=== PATIENT | female | born 1940 | race Caucasian/White ===

== ENCOUNTER 2023-03-27 01:16 | Inpatient (IN) | payer MEDICARE ==
[2023-03-27 01:52] LABS: VBG PH 7.21 (7.31-7.41)
[2023-03-27 02:05] LABS: Albumin 3.9 g/dL (3.5-5.0); Basophils % (A) 0 %; Calcium 8.7 mg/dL (8.4-10.2); Eosinophils # (A) 0.3 k/uL (0-0.7); Eosinophils % (A) 3 %; HCT 31.8 % (34.0-46.0); HGB 9.6 gm/dL (11.4-16.0); Hypochromasia Marked; Lymphocytes # (A) 3.2 k/uL (1.0-4.8); Lymphocytes % (A) 31 %; MCH 26.9 pg (25.0-35.0); MCHC 30.2 g/dL (31.0-37.0); Magnesium 2.2 mg/dL (1.6-2.3); Mean Platelet Volume 10.8; Monocytes # (A) 0.4 k/uL (0-1.0); Monocytes % (A) 4 %; Neutrophils # (A) 6.1 k/uL (1.3-7.7); Neutrophils % (A) 59 %; Platelet Count 235 k/uL (150-450); Potassium 4.8 mmol/L (3.5-5.1); RBC 3.57 m/uL (3.80-5.40); RDW 14.5 % (11.5-15.5); Total Bilirubin 0.6 mg/dL (0.2-1.3); Total Protein 7.1 g/dL (6.3-8.2); WBC 10.3 k/uL (3.8-10.6)
[2023-03-27 02:18] LABS: Partial Thromboplastin Time 20.2 sec (22.0-30.0); Prothrombin Time 10.4 sec (9.0-12.0)
[2023-03-27] MEDS ORDERED: MORPHINE SULFATE 4 MG/ML SYRINGE IV STA (02:18)
[2023-03-27] MEDS ORDERED: FUROSEMIDE 10 MG/ML 4 ML VIAL IV STA (02:18)
--- NOTE | 2023-03-27 03:33 | XR ---
EXAM: XR Chest, 1 View CLINICAL HISTORY: ITS.REASON XR Reason: dyspnea TECHNIQUE: Frontal view of the chest. COMPARISON: No previous studies. FINDINGS: Lungs: Diffuse patchy airspace disease is noted bilaterally most suggestive of atypical pneumonia. Pleural space: Blunting of the left CP angle aspect the base of small left pleural effusion appeared. No pneumothorax. Heart: Cardiomegaly. Mediastinum: Unremarkable. Bones/joints: Osteopenia. Tubes, lines and devices: Pacemaker overlies the left upper chest. IMPRESSION: 1. Findings suggestive of possible atypical pneumonia. 2. Small left pleural effusion appeared 3. Scarring at the left lung base. 4. Osteopenia.
[2023-03-27] MEDS ORDERED: AZITHROMYCIN 500 MG in SODIUM CHLORIDE 0.9% 250 ML IVPB STA (04:07)
[2023-03-27] MEDS ORDERED: PNEUMONIA PROTOCOL UTILIZED 1 EACH MISC PO PRN ×2 (04:18→09:05)
[2023-03-27] MEDS: SODIUM CHLORIDE 0.9% 1,000 ML IV SCH ×3 (06:00→22:57)
--- NOTE | 2023-03-27 06:31 | ED ---
SOB HPI - General Chief Complaint: Shortness of Breath Stated Complaint: Shortness of breath Time Seen by Provider: 03/27/23 01:29 Source: patient Mode of arrival: ambulatory Limitations: no limitations - History of Present Illness Initial Comments: 's patient is an 83-year-old woman brought to have evaluation for shortness of breath. The patient's daughter gives most of the history as the patient does have significant dementia and also has significant dyspnea. The symptoms came on over the past couple of hours. The patient does tend to get episodes like this, and the patient's daughter states that she will use oxygen, give benzodiazepine, and attempt to talk the patient through the episode. Today's episode seemed much more severe and the patient was very diaphoretic, anxious and therefore they bring her here for evaluation. MD Complaint: shortness of breath -: hour(s) Severity scale (1-10): 0 Consistency: constant Improves With: oxygen, upright position Worsens With: nothing Associated Symptoms: denies other symptoms - Related Data Home Medications Medication Instructions Recorded Confirmed ALPRAZolam [Xanax] 0.25 mg PO DAILY PRN 03/27/23 03/27/23 Albuterol Nebulized [Ventolin 2.5 mg INHALATION RT-Q2H PRN 03/27/23 03/27/23 Nebulized] Aspirin EC [Ecotrin Low Dose] 81 mg PO DAILY 03/27/23 03/27/23 Donepezil [Aricept] 10 mg PO HS 03/27/23 03/27/23 Escitalopram [Lexapro] 10 mg PO DAILY 03/27/23 03/27/23 Fluticasone Propion/Salmeterol 1 puff INHALATION RT-BID 03/27/23 03/27/23 [Wixela 250-50 Inhub] Furosemide [Lasix] 20 mg PO DAILY 03/27/23 03/27/23 Levothyroxine Sodium [Synthroid] 125 mcg PO MOTUWETHFRSA 03/27/23 03/27/23 Lovastatin [Mevacor] 40 mg PO HS 03/27/23 03/27/23 Memantine [Namenda] 10 mg PO BID 03/27/23 03/27/23 Mirtazapine [Remeron] 7.5 mg PO HS 03/27/23 03/27/23 Montelukast [Singulair] 10 mg PO HS 03/27/23 03/27/23 Potassium Chloride ER [K-Dur 10] 10 meq PO DAILY 03/27/23 03/27/23 amLODIPine [Norvasc] 10 mg PO DAILY 03/27/23 03/27/23 lisinopriL [Zestril] 5 mg PO DAILY 03/27/23 03/27/23 metFORMIN HCL ER [Glucophage XR] 500 mg PO W/BRKFST 03/27/23 03/27/23 Allergies Allergy/AdvReac Type Severity Reaction Status Date / Time Penicillins Allergy Unknown Verified 03/27/23 12:10 Review of Systems ROS Statement: Those systems with pertinent positive or pertinent negative responses have been documented in the HPI. ROS Other: All systems not noted in ROS Statement are negative. Constitutional: Denies: fever, weakness Respiratory: Reports: dyspnea. Denies: wheezes Cardiovascular: Reports: orthopnea. Denies: chest pain, edema, syncope Gastrointestinal: Denies: abdominal pain, vomiting, diarrhea Genitourinary: Denies: dysuria, hematuria Musculoskeletal: Denies: back pain Skin: Denies: rash Neurological: Denies: headache, weakness Past Medical History Past Medical History: Asthma, Coronary Artery Disease (CAD), Cancer, Chest Pain / Angina, Heart Failure, COPD, Dementia, Diabetes Mellitus, Hypertension, Renal Disease, Thyroid Disorder Additional Past Medical History / Comment(s): lung and breast cancer, BBB, History of Any Multi-Drug Resistant Organisms: None Reported Past Surgical History: Hysterectomy, Pacemaker Additional Past Surgical History / Comment(s): lumpectomy , Past Psychological History: No Psychological Hx Reported Smoking Status: Former smoker Past Alcohol Use History: None Reported Past Drug Use History: None Reported - Past Family History Father Family Medical History: Myocardial Infarction (HI) Mother Family Medical History: Myocardial Infarction (HI) General Exam Limitations: no limitations General appearance: alert, in distress Head exam: Present: atraumatic, normocephalic Eye exam: Present: normal appearance. Absent: scleral icterus, conjunctival injection Neck exam: Present: normal inspection Respiratory exam: Present: respiratory distress (Mild tachypnea), rales (Bilateral bases), rhonchi, accessory muscle use. Absent: decreased breath sounds, prolonged expiratory Cardiovascular Exam: Present: regular rate, tachycardia, systolic murmur. Absent: diastolic murmur, rubs, gallop GI/Abdominal exam: Present: soft. Absent: distended, tenderness, guarding, rebound, rigid, mass Extremities exam: Present: normal inspection, normal capillary refill. Absent: pedal edema, calf tenderness Back exam: Present: normal inspection. Absent: CVA tenderness (R), CVA tenderness (L) Neurological exam: Present: alert Skin exam: Present: warm, dry, intact, normal color. Absent: rash Course Vital Signs 03/27/23 03/27/23 03/27/23 01:26 01:30 01:36 Temperature 96.8 F L Pulse Rate 114 H 98 Respiratory 22 26 H Rate Blood Pressure 103/62 127/58 O2 Sat by Pulse 62 L 100 Oximetry Fraction of 80 Inspired Oxygen (FIO2) 03/27/23 03/27/23 03/27/23 01:43 01:46 02:47 Temperature Pulse Rate 62 Respiratory 30 H 26 H Rate Blood Pressure 124/55 O2 Sat by Pulse 100 Oximetry Fraction of 60 Inspired Oxygen (FIO2) 03/27/23 03/27/23 03/27/23 04:00 05:39 05:49 Temperature Pulse Rate 80 Respiratory 24 Rate Blood Pressure 99/48 O2 Sat by Pulse 100 100 Oximetry Fraction of 80 Inspired Oxygen (FIO2) 03/27/23 03/27/23 05:53 05:58 Temperature Pulse Rate 60 Respiratory 22 Rate Blood Pressure 93/45 O2 Sat by Pulse 98 97 Oximetry Fraction of Inspired Oxygen (FIO2) Medical Decision Making - Medical Decision Making Patient is an 83-year-old woman brought to have evaluation of acute onset of dyspnea. Given the patient's daughters description of things it sounds like there is probably underlying congestive heart failure. The patient had been placed on BiPAP, and it sounds like there was already moderate amount of improvement by the time I had been in to see the patient. She was no longer diaphoretic. The patient had chest x-ray which I interpreted as showing cardiomegaly with some vascular congestion. Radiology interprets patchy infiltrate suggestive of atypical pneumonia. On given their interpretation I did order a dose of antibiotics though I still wean more towards acute congestive heart failure. Patient will have echocardiogram. Admitted for further evaluation and treatment. Was pt. sent in by a medical professional or institution (, PA, FOLDER TAPER OPERATOR, urgent care, hospital, or [facility]...) When possible be specific @ -[No] Did you speak to anyone other than the patient for history (EMS, parent, family, police, friend...)? What history was obtained from this source @ -[Patient's daughter gave significant portion of history as patient with dementia Did you review nursing and triage notes (agree or disagree)? Why? @ -[I reviewed and agree with nursing and triage notes] Were old charts reviewed (outside hosp., previous admission, EMS record, old EKG, old radiological studies, urgent care reports/EKG's, [facility] records)? Report findings @ -[No old charts were reviewed] Differential Diagnosis (chest pain, altered mental status, abdominal pain women, abdominal pain men, vaginal bleeding, weakness, fever, dyspnea, syncope, headache, dizziness, GI bleed, back pain, seizure, CVA, palpatations, mental health, musculoskeletal)? @ -[Differential Dyspnea: Coronary syndrome, arrhythmia, tamponade, asthma, COPD, pulmonary embolism, pneumonia, pneumothorax, pulmonary effusion, anaphylaxis, diabetic ketoacidosis, flailed chest, pulmonary contusion, diaphragmatic rupture, anemia, neuromuscular, this is not meant to be an all-inclusive list. EKG interpreted by me (3pts min.). @ -[As above] X-rays interpreted by me (1pt min.). @ -[As above CT interpreted by me (1pt min.). @ -[None done] U/S interpreted by me (1pt. min.). @ -[None done] What testing was considered but not performed or refused? (CT, X-rays, U/S, labs)? Why? @ -[None] What meds were considered but not given or refused? Why? @ -[None] Did you discuss the management of the patient with other professionals (professionals i.e. , PA, FOLDER TAPER OPERATOR, lab, RT, psych nurse, nursing home social worker, regeneration operator, teacher, sheriff's officer, test case developer)? Give summary @ -[Case discussed with admitting physician Was smoking cessation discussed for >3mins.? @ -[No] Was critical care preformed (if so, how long)? @ -[No] Were there social determinants of health that impacted care today? How? (Homelessness, low income, unemployed, alcoholism, drug addiction, transportation, low edu. Level, literacy, decrease access to med. care, assisted, rehab)? @ -[No] Was there de-escalation of care discussed even if they declined (Discuss DNR or withdrawal of care, Hospice)? DNR status @ -[Did discuss CODE STATUS and patient is considering options What co-morbidities impacted this encounter? (DM, HTN, Smoking, COPD, CAD, Cancer, CVA, ARF, Chemo, Hep., AIDS, mental health diagnosis, sleep apnea, morbid obesity)? @ -[Underlying congestive heart failure Was patient admitted / discharged? Hospital course, mention meds given and route, prescriptions, significant lab abnormalities, going to OR and other pertinent info. @ -[Patient is admitted for further care Undiagnosed new problem with uncertain prognosis? @ -[No] Drug Therapy requiring intensive monitoring for toxicity (Heparin, Nitro, Insulin, Cardizem)? @ -[No] Were any procedures done? @ -[No] Diagnosis/symptom? @ -[Acute dyspnea Exacerbation of congestive heart failure Possible pneumonia Acute, or Chronic, or Acute on Chronic? @ -[Acute Uncomplicated (without systemic symptoms) or Complicated (systemic symptoms)? @ -[, Getting Side effects of treatment? @ -[No] Exacerbation, Progression, or Severe Exacerbation? @ -[No] Poses a threat to life or bodily function? How? (Chest pain, [place], HI, pneumonia, PE, COPD, DKA, ARF, appy, cholecystitis, CVA, Diverticulitis, Homicidal, Suicidal, threat to staff... and all critical care pts) @ -[yes, untreated congestive heart failure and/or pneumonia may worsen to respiratory failure and - Lab Data Result diagrams: 03/27/23 01:35 03/27/23 01:35 Lab Results 03/27/23 03/27/23 03/27/23 Range/Units 01:35 01:35 01:35 WBC 10.3 (3.8-10.6) k/uL RBC 3.57 L (3.80-5.40) m/uL Hgb 9.6 L (11.4-16.0) gm/dL Hct 31.8 L (34.0-46.0) % MCV 89.0 (80.0-100.0) fL MCH 26.9 (25.0-35.0) pg MCHC 30.2 L (31.0-37.0) g/dL RDW 14.5 (11.5-15.5) % Plt Count 235 (150-450) k/uL MPV 10.8 Neutrophils % 59 % Lymphocytes % 31 % Monocytes % 4 % Eosinophils % 3 % Basophils % 0 % Neutrophils # 6.1 (1.3-7.7) k/uL Lymphocytes # 3.2 (1.0-4.8) k/uL Monocytes # 0.4 (0-1.0) k/uL Eosinophils # 0.3 (0-0.7) k/uL Basophils # 0.0 (0-0.2) k/uL Hypochromasia Marked PT 10.4 (9.0-12.0) sec INR 1.0 (<1.2) APTT 20.2 L (22.0-30.0) sec VBG pH (7.31-7.41) VBG pCO2 (37-51) mmHg VBG HCO3 (24-28) mmol/L Sodium 139 (137-145) mmol/L Potassium 4.8 (3.5-5.1) mmol/L Chloride 102 (98-107) mmol/L Carbon Dioxide 23 (22-30) mmol/L Anion Gap 14 mmol/L BUN 35 H (7-17) mg/dL Creatinine 1.39 H (0.52-1.04) mg/dL Est GFR (CKD-EPI)AfAm 41 (>60 ml/min/1.73 sqM) Est GFR (CKD-EPI)NonAf 35 (>60 ml/min/1.73 sqM) Glucose 367 H (74-99) mg/dL Lactic Ac Sepsis Rflx Plasma Lactic Acid Jason (0.7-2.0) mmol/L Calcium 8.7 (8.4-10.2) mg/dL Magnesium 2.2 (1.6-2.3) mg/dL Total Bilirubin 0.6 (0.2-1.3) mg/dL AST 32 (14-36) U/L ALT 21 (4-34) U/L Alkaline Phosphatase 70 (38-126) U/L Troponin I (0.000-0.034) ng/mL Total Protein 7.1 (6.3-8.2) g/dL Albumin 3.9 (3.5-5.0) g/dL 06/04/23 06/04/23 06/04/23 Range/Units 01:35 01:35 01:35 WBC (3.8-10.6) k/uL RBC (3.80-5.40) m/uL Hgb (11.4-16.0) gm/dL Hct (34.0-46.0) % MCV (80.0-100.0) fL MCH (25.0-35.0) pg MCHC (31.0-37.0) g/dL RDW (11.5-15.5) % Plt Count (150-450) k/uL MPV Neutrophils % % Lymphocytes % % Monocytes % % Eosinophils % % Basophils % % Neutrophils # (1.3-7.7) k/uL Lymphocytes # (1.0-4.8) k/uL Monocytes # (0-1.0) k/uL Eosinophils # (0-0.7) k/uL Basophils # (0-0.2) k/uL Hypochromasia PT (9.0-12.0) sec INR (<1.2) APTT (22.0-30.0) sec VBG pH 7.21 L (7.31-7.41) VBG pCO2 57 H (37-51) mmHg VBG HCO3 22 L (24-28) mmol/L Sodium (137-145) mmol/L Potassium (3.5-5.1) mmol/L Chloride (98-107) mmol/L Carbon Dioxide (22-30) mmol/L Anion Gap mmol/L BUN (7-17) mg/dL Creatinine (0.52-1.04) mg/dL Est GFR (CKD-EPI)AfAm (>60 ml/min/1.73 sqM) Est GFR (CKD-EPI)NonAf (>60 ml/min/1.73 sqM) Glucose (74-99) mg/dL Lactic Ac Sepsis Rflx Plasma Lactic Acid Jason 5.6 H* (0.7-2.0) mmol/L Calcium (8.4-10.2) mg/dL Magnesium (1.6-2.3) mg/dL Total Bilirubin (0.2-1.3) mg/dL AST (14-36) U/L ALT (4-34) U/L Alkaline Phosphatase (38-126) U/L Troponin I 0.016 (0.000-0.034) ng/mL Total Protein (6.3-8.2) g/dL Albumin (3.5-5.0) g/dL 03/27/23 Range/Units 02:37 WBC (3.8-10.6) k/uL RBC (3.80-5.40) m/uL Hgb (11.4-16.0) gm/dL Hct (34.0-46.0) % MCV (80.0-100.0) fL MCH (25.0-35.0) pg MCHC (31.0-37.0) g/dL RDW (11.5-15.5) % Plt Count (150-450) k/uL MPV Neutrophils % % Lymphocytes % % Monocytes % % Eosinophils % % Basophils % % Neutrophils # (1.3-7.7) k/uL Lymphocytes # (1.0-4.8) k/uL Monocytes # (0-1.0) k/uL Eosinophils # (0-0.7) k/uL Basophils # (0-0.2) k/uL Hypochromasia PT (9.0-12.0) sec INR (<1.2) APTT (22.0-30.0) sec VBG pH (7.31-7.41) VBG pCO2 (37-51) mmHg VBG HCO3 (24-28) mmol/L Sodium (137-145) mmol/L Potassium (3.5-5.1) mmol/L Chloride (98-107) mmol/L Carbon Dioxide (22-30) mmol/L Anion Gap mmol/L BUN (7-17) mg/dL Creatinine (0.52-1.04) mg/dL Est GFR (CKD-EPI)AfAm (>60 ml/min/1.73 sqM) Est GFR (CKD-EPI)NonAf (>60 ml/min/1.73 sqM) Glucose (74-99) mg/dL Lactic Ac Sepsis Rflx Y Plasma Lactic Acid Jason (0.7-2.0) mmol/L Calcium (8.4-10.2) mg/dL Magnesium (1.6-2.3) mg/dL Total Bilirubin (0.2-1.3) mg/dL AST (14-36) U/L ALT (4-34) U/L Alkaline Phosphatase (38-126) U/L Troponin I (0.000-0.034) ng/mL Total Protein (6.3-8.2) g/dL Albumin (3.5-5.0) g/dL - EKG Data -: EKG Interpreted by Me Interpretation: other (Underlying rhythm appears to be paced rate is 102 BPM) Disposition Clinical Impression: Congestive heart failure, Pneumonia Disposition: ADMITTED IP TO THIS HOSP Condition: Undetermined Is patient prescribed a controlled substance at d/c from ED?: No
[2023-03-27] MEDS ORDERED: DEXTROSE 50% SYRINGE 50 ML IVP PRN ×2 (06:37)
[2023-03-27 08:38] LABS: Glucose,Whole Blood 181 mg/dL (70-110)
[2023-03-27] MEDS ORDERED: ACETAMINOPHEN TAB 325 MG TAB PO PRN (09:05)
[2023-03-27] MEDS ORDERED: ENOXAPARIN 40 MG/0.4 ML SYRINGE SQ SCH (09:15)
[2023-03-27] MEDS: INSULIN ASPART (NovoLOG) 100 UNIT/ML VIAL SQ SCH ×5 (09:27→22:57)
[2023-03-27] MEDS: FUROSEMIDE 40 MG TAB PO SCH ×2 (09:27→20:40)
[2023-03-27] MEDS ORDERED: HEPARIN SODIUM 1,000 UN/ML (10ML VL) IV PRN (11:37)
[2023-03-27] MEDS ORDERED: HEPARIN SODIUM 1,000 UN/ML (10ML VL) IV ONE (11:37)
[2023-03-27 11:38] LABS: Glucose,Whole Blood 163 mg/dL (70-110)
[2023-03-27] MEDS ORDERED: HEPARIN SOD,PORK IN 0.45% NACL 25,000 UNIT in 0.45% NACL 1 250ML.BAG IV SCH (11:45)
[2023-03-27] MEDS ORDERED: ALPRAZolam 0.25 MG TAB PO PRN (14:37)
[2023-03-27] MEDS ORDERED: ALBUTEROL NEBULIZED 2.5 MG/3 ML INHALATION PRN (14:37)
[2023-03-27] MEDS ORDERED: ESCITALOPRAM 10 MG TAB PO SCH (14:45)
[2023-03-27] MEDS ORDERED: ASPIRIN 81 MG PO SCH (14:45)
[2023-03-27 16:15] LABS: Glucose,Whole Blood 98 mg/dL (70-110)
--- NOTE | 2023-03-27 16:23 | P.CRDCN ---
History of Present Illness Consult date: 03/27/23 Requesting physician: Berry Arciniega Reason for Consult (text): CHF new onset Chief complaint: shortness of breath, diaphoresis History of present illness: This is a pleasantly confused 83-year-old female patient who typically follows with Dr. Dominguez. She is a history of CAD with prior stent in 2011, chronic diastolic congestive heart failure, COPD on home oxygen, lung cancer being followed closely by pulmonology with no treatment, aortic stenosis, PPM, HTN, HLD, DM and fairly advanced Alzheimer's dementia. She was camping with her daughter in [place] and woke up in the middle the night with sudden onset of significant shortness of breath and diaphoresis. No chest discomfort. The daughter gave her initially a Xanax without improvement in her symptoms. She was quite weak and had to get help to get her into the car. She brought her to the emergency department and was found to have an oxygen saturation of 62% on 3 L via nasal cannula. Chest x-ray did show possible atypical pneumonia. She admitting diagnosis of CHF exacerbation however NT proBNP is normal for age at 1520. Hemoglobin 9.6, creatinine 1.39 BUN 35. Initial troponin was normal at 0.016 with subsequent troponins of 2.04 and 2.93. 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 She is unsure of the degree of aortic stenosis. She verbalizes that she would like her mother to be a NO CODE. There have been previous conversations with the patient and her family regarding eventual hospice care. Over the last couple of months her appetite has declined and she has not been eating very much. She denies any edema or orthopnea. She's had no palpitations, dizziness or syncope. Past Medical History Past Medical History: Asthma, Coronary Artery Disease (CAD), Cancer, Chest Pain / Angina, Heart Failure, COPD, Dementia, Diabetes Mellitus, Hypertension, Renal Disease, Thyroid Disorder Additional Past Medical History / Comment(s): lung and breast cancer, BBB, History of Any Multi-Drug Resistant Organisms: None Reported Past Surgical History: Hysterectomy, Pacemaker Additional Past Surgical History / Comment(s): lumpectomy right breast, Past Anesthesia/Blood Transfusion Reactions: Previous Problems w/ Anesthesia Additional Past Anesthesia/Blood Transfusion Reaction / Comment(s): confusion with anesethesia, mentally confused afterwards Type of Cardiac Device: Permanent Pacemaker Device Placement Date:: 2019 Past Psychological History: No Psychological Hx Reported, Anxiety, Depression Smoking Status: Former smoker Past Alcohol Use History: None Reported Past Drug Use History: None Reported - Past Family History Father Family Medical History: Myocardial Infarction (MA) Mother Family Medical History: Myocardial Infarction (MA) Medications and Allergies Home Medications Medication Instructions Recorded Confirmed Type ALPRAZolam [Xanax] 0.25 mg PO DAILY PRN 03/27/23 03/27/23 History Albuterol Nebulized [Ventolin 2.5 mg INHALATION RT-Q2H PRN 03/27/23 03/27/23 His tory Nebulized] Aspirin EC [Ecotrin Low Dose] 81 mg PO DAILY 03/27/23 03/27/23 History Donepezil [Aricept] 10 mg PO HS 03/27/23 03/27/23 History Escitalopram [Lexapro] 10 mg PO DAILY 03/27/23 03/27/23 History Fluticasone Propion/Salmeterol 1 puff INHALATION RT-BID 03/27/23 03/27/23 Hist ory [Wixela 250-50 Inhub] Furosemide [Lasix] 20 mg PO DAILY 03/27/23 03/27/23 History Levothyroxine Sodium [Synthroid] 125 mcg PO [id number] 03/27/23 03/27/23 History Lovastatin [Mevacor] 40 mg PO HS 03/27/23 03/27/23 History Memantine [Namenda] 10 mg PO BID 03/27/23 03/27/23 History Mirtazapine [Remeron] 7.5 mg PO HS 03/27/23 03/27/23 History Montelukast [Singulair] 10 mg PO HS 03/27/23 03/27/23 History Potassium Chloride ER [K-Dur 10] 10 meq PO DAILY 03/27/23 03/27/23 History amLODIPine [Norvasc] 10 mg PO DAILY 03/27/23 03/27/23 History lisinopriL [Zestril] 5 mg PO DAILY 03/27/23 03/27/23 History metFORMIN HCL ER [Glucophage XR] 500 mg PO W/BRKFST 03/27/23 03/27/23 History Allergies Allergy/AdvReac Type Severity Reaction Status Date / Time Penicillins Allergy Unknown Verified 03/27/23 12:10 Physical Exam Vitals: Vital Signs Temp Pulse Pulse Resp BP BP Pulse Ox 03/27/23 12:00 98.4 F 60 18 117/61 97 03/27/23 08:02 98.0 F 79 18 129/62 97 03/27/23 08:00 60 18 03/27/23 06:32 98.2 F 61 16 115/56 94 L 03/27/23 05:58 97 03/27/23 05:53 60 22 93/45 98 03/27/23 05:49 03/27/23 05:39 80 24 99/48 100 03/27/23 04:00 100 03/27/23 02:47 62 26 H 124/55 100 03/27/23 01:46 03/27/23 01:43 30 H 03/27/23 01:36 03/27/23 01:30 98 26 H 127/58 100 03/27/23 01:26 96.8 F L 114 H 22 103/62 62 L FiO2 03/27/23 12:00 03/27/23 08:02 03/27/23 08:00 03/27/23 06:32 03/27/23 05:58 03/27/23 05:53 03/27/23 05:49 80 03/27/23 05:39 03/27/23 04:00 03/27/23 02:47 03/27/23 01:46 60 03/27/23 01:43 03/27/23 01:36 80 03/27/23 01:30 03/27/23 01:26 Intake and Output 03/26/23 03/27/23 03/27/23 22:59 06:59 14:59 Intake Total 180 Output Total 550 Balance -370 Intake: Oral 180 Output: Urine 550 Other: Voiding Method Indwelling Catheter Weight 63.503 kg 63.503 kg PHYSICAL EXAMINATION: This is a 83-year-old female in no apparent distress at the time of my examination. HEENT: Head is atraumatic, normocephalic. Pupils are equal, round. Sclerae anicteric. Conjunctivae are clear. Mucous membranes of the mouth are moist. Neck is supple. There is no elevated jugular venous pressure. No carotid bruit is heard. CHEST EXAMINATION: Clear to auscultation bilaterally. No wheezes rales or rhonchi. Respirations even and nonlabored. HEART EXAMINATION: Heart regular, positive S1 and S2. Systolic ejection murmur consistent with history of . ABDOMEN: Soft, nontender. Bowel sounds are heard. No organomegaly noted. EXTREMITIES: 2+ peripheral pulses with no evidence of peripheral edema and no calf tenderness noted. NEUROLOGIC EXAMINATION: Patient is awake, alert and oriented to person. Results 03/27/23 01:35 03/27/23 01:35 Cardiac Enzymes 03/27/23 03/27/23 03/27/23 Range/Units 01:35 01:35 09:10 AST 32 (14-36) U/L Troponin I 0.016 2.040 H* (0.000-0.034) ng/mL 03/27/23 Range/Units 12:06 AST (14-36) U/L Troponin I 2.930 H* (0.000-0.034) ng/mL Coagulation 03/27/23 Range/Units 01:35 PT 10.4 (9.0-12.0) sec APTT 20.2 L (22.0-30.0) sec CBC 03/27/23 Range/Units 01:35 WBC 10.3 (3.8-10.6) k/uL RBC 3.57 L (3.80-5.40) m/uL Hgb 9.6 L (11.4-16.0) gm/dL Hct 31.8 L (34.0-46.0) % Plt Count 235 (150-450) k/uL Comprehensive Metabolic Panel 03/27/23 Range/Units 01:35 Sodium 139 (137-145) mmol/L Potassium 4.8 (3.5-5.1) mmol/L Chloride 102 (98-107) mmol/L Carbon Dioxide 23 (22-30) mmol/L BUN 35 H (7-17) mg/dL Creatinine 1.39 H (0.52-1.04) mg/dL Glucose 367 H (74-99) mg/dL Calcium 8.7 (8.4-10.2) mg/dL AST 32 (14-36) U/L ALT 21 (4-34) U/L Alkaline Phosphatase 70 (38-126) U/L Total Protein 7.1 (6.3-8.2) g/dL Albumin 3.9 (3.5-5.0) g/dL Current Medications Generic Name Dose Route Start Last Admin Trade Name Freq PRN Reason Stop Dose Admin Acetaminophen 650 mg 03/27/23 09:05 Acetaminophen Tab 325 Mg Tab PO Q4HR PRN Fever and/ or Pain Azithromycin 500 mg 03/28/23 09:00 Azithromycin 500 Mg Tab PO 03/29/23 09:01 DAILY GARCIA Protocol Dextrose/Water 25 ml 03/27/23 06:37 Dextrose 50% Syringe 50 Ml IVP PER PROTOCOL PRN Hypoglycemia Protocol Dextrose/Water 50 ml 03/27/23 06:37 Dextrose 50% Syringe 50 Ml IVP PER PROTOCOL PRN Hypoglycemia Protocol Furosemide 40 mg 03/27/23 09:01 03/27/23 09:27 Furosemide 40 Mg Tab PO 40 mg Q12HR GARCIA Administration Heparin Sodium (Porcine) 0 unit 03/27/23 11:37 Heparin Sodium 1,000 Un/Ml (10ml Vl) IV PER PROTOCOL PRN Low PTT Protocol Sodium Chloride 1,000 mls @ 100 mls/hr 03/27/23 04:30 03/27/23 06:00 Saline 0.9% IV 100 mls/hr .Q10H GARCIA Administration Ceftriaxone Sodium 2 gm/ 50 mls @ 100 mls/hr 03/28/23 09:00 Sodium Chloride IVPB 03/31/23 09:29 Q24HR GARCIA Protocol Heparin Sodium/Sodium Chloride 250 mls @ 7.62 mls/hr 03/27/23 11:45 03/27/23 11:55 25,000 unit/ Sodium Chloride IV 12 units/kg/hr .Q24H GARCIA 7.62 mls/hr Administration Protocol 12 UNITS/KG/HR Insulin Aspart 0 unit 03/27/23 07:30 03/27/23 14:31 Insulin Aspart (Novolog) 100 Unit/Ml Vial SQ Not Given ACHS [facility] Protocol Miscellaneous Information 1 each 03/27/23 09:05 Pneumonia Protocol Utilized 1 Each Misc PO ONCE PRN Per Protocol Intake and Output 03/26/23 03/27/23 03/27/23 22:59 06:59 14:59 Intake Total 180 Output Total 550 Balance -370 Intake: Oral 180 Output: Urine 550 Other: Voiding Method Indwelling Catheter Weight 63.503 kg 63.503 kg Patient Weight 03/28/23 06:59 Weight 63.503 kg 03/27/23 01:35 03/27/23 01:35 EKG Interpretations (text) Sinus with ventricular pacing Assessment and Plan Assessment: #1 symptoms of sudden onset shortness of breath and diaphoresis with oxygen saturation of 62% on admission on 3 L via nasal cannula #2 NSTEMI #3 history of CAD with prior stenting in 2011 #4 aortic stenosis #5 chronic diastolic congestive heart failure, appears to be euvolemic, NT proBNP 1520 #6 status post pacemaker implantation #7 hypertension #8 hyperlipidemia #9 diabetes #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 We will obtain 2-D echo with Doppler study to assess cardiac structure and function. At this time due to patient's underlying malignancy, advanced Alzheimer's dementia, and her wishes she is not a candidate for aggressive cardiac workup. If her blood pressure remains stable may consider adding an oral nitrate. We'll continue to follow the patient and provide further recommendations accordingly. DIRECT MARKETING EXECUTIVE note has been reviewed, I agree with a documented findings and plan of care. Patient was seen and examined.
--- NOTE | 2023-03-27 16:32 | HP ---
HISTORY AND PHYSICAL PRESENTING COMPLAINT: Shortness of breath. HISTORY OF PRESENT ILLNESS: This is an 83-year-old lady with past medical history significant for dementia, hypertension, coronary artery disease, congestive heart failure, COPD, diabetes mellitus, thyroid disorder, who presented to the emergency department with complaints of shortness of breath and dyspnea. The patient is a poor historian and the history was obtained from daughter, who mentioned the patient was diaphoretic, anxious, and difficult to breathe at home. Workup initiated in the ER included chest x-ray which did show findings for atypical pneumonia, pleural effusion noted on the left side, scarring noted at the left lung base; EKG was obtained at the time of admission which showed nonspecific ST-segment changes. Blood work obtained at the time of presentation in ER included a CBC which showed WBC of 10.3, hemoglobin 9.6, hematocrit 31, platelet count 235. Serum chemistry is obtained, showed sodium 139, potassium 4.8, chloride 102, BUN 35, creatinine 1.39. Initial troponin obtained at the time of admission was 2.930, N- Terminal ProBNP 1520; the patient had blood glucose ranging between 160 to 367. The patient was accompanied by daughter at bedside, who assisted with history taking. Per daughter, the patient has been getting more short of breath and she does wear 2 L of oxygen at baseline and was noted to be needing more oxygen. The patient will be admitted for further workup and treatment of congestive heart failure, non-ST elevation NM, and community-acquired pneumonia. PAST MEDICAL HISTORY: Coronary artery disease, history of heart failure, COPD, dementia, diabetes, hypertension, thyroid disorder. PAST SURGICAL HISTORY: Hysterectomy, pacemaker in place, history of lumpectomy. SOCIAL HISTORY: Former smoker. Denies alcohol or illicit drug use. FAMILY HISTORY: Not significant. Unable to obtain secondary to dementia. REVIEW OF SYSTEMS: A 12-point review of system was obtained, which was essentially normal. The patient denies fever or weakness. She does complain of dyspnea. She does complain of orthopnea. Denies dysuria, hematuria, back pain, headache, rash, chest pain. PHYSICAL EXAMINATION: VITAL SIGNS: Temperature 98.4, pulse 60, respirations 18, blood pressure 117/61, saturation is 97% on 4 L. GENERAL: The patient is alert, in no apparent distress. Impaired memory. HEENT: Normocephalic and atraumatic. PULMONARY: Mild tachypnea. Decreased breath sounds bilaterally. No use of accessory muscles. No wheezing audible. CARDIOVASCULAR: Regular rate. Systolic murmur. No lower extremity edema. ABDOMEN: Soft. Nontender. Bowel sounds present. NEUROLOGIC: Alert and oriented to person. Appears at baseline. ASSESSMENT: 1. Community-acquired pneumonia. 2. Acute on chronic hypoxic respiratory failure. 3. Fkz-JY-lucekbney myocardial infarction. 4. History of dementia. 5. Diabetes mellitus. 6. Acute exacerbation of congestive heart failure, unknown type. PLAN: 1. Continue the patient on Lasix, receiving 40 mg of Lasix oral b.i.d. 2. Continue Rocephin and azithromycin, follow up on ____CRP _ levels. 3. In regard to dementia, continue with orientation; home regimen including Namenda, Remeron, and Aricept to continue. 4. In regard to non-ST elevation NM, continue the patient on IV heparin. Continue aspirin; Cardiology consulted. Continue telemonitoring, serial troponins ordered. 5. In regard to congestive heart failure, echocardiogram ordered. 6. Follow up on CBC, BMP, and CRP levels. 7. Code status was discussed with the patient and daughter. The patient is DNR. Total time spent on H and P is 35 minutes. MMODL / IJN: [id number] / YOSSI
[2023-03-27 19:37] LABS: Glucose,Whole Blood 138 mg/dL (70-110)
[2023-03-27] MEDS: SYMBICORT 80-4.5 MCG INHALER INHALATION SCH (20:54)
[2023-03-27] MEDS ORDERED: ATORVASTATIN 40 MG TAB PO SCH (21:00)
[2023-03-27] MEDS ORDERED: MONTELUKAST 10 MG TAB PO SCH (21:00)
[2023-03-27] MEDS ORDERED: ATORVASTATIN 10 MG TAB PO SCH (21:00)
[2023-03-27] MEDS ORDERED: MEMANTINE 10 MG TAB PO SCH (21:00)
[2023-03-27] MEDS ORDERED: MIRTAZAPINE 15 MG TAB PO SCH (21:00)
[2023-03-27] MEDS ORDERED: DONEPEZIL 10 MG TAB PO SCH (21:00)
[2023-03-27] MEDS ORDERED: GLYCOPYRROLATE 0.2 MG/ML 2 ML VIAL IVP PRN (22:13)
[2023-03-27] MEDS ORDERED: ONDANSETRON 4 MG/2 ML VIAL IVP PRN (22:13)
[2023-03-27] MEDS ORDERED: ATROPINE OPHTH SOLN 1% 5ML BTL SUBLINGUAL PRN (22:13)
[2023-03-27] MEDS: MORPHINE SULFATE 4 MG/ML SYRINGE IV PRN (22:26)
--- NOTE | 2023-03-28 00:10 | XR ---
EXAM: XR Chest, 1 View CLINICAL HISTORY: ITS.REASON XR Reason: Resp distress TECHNIQUE: Frontal view of the chest. COMPARISON: 03/27/2023 FINDINGS: Lungs: Redemonstrated interstitial and airspace opacities representing edema or infection. Scarring at the left lung base. Pleural space: Small left pleural effusion. Heart: Unremarkable. No cardiomegaly. Tubes, lines and devices: Pacemaker leads in the right atrium and right ventricle. IMPRESSION: 1. Redemonstrated interstitial and airspace opacities representing edema or infection. Slight worsening aeration at the left base. 2. Small left pleural effusion.
[2023-03-28] MEDS: MORPHINE SULFATE 4 MG/ML SYRINGE IV PRN ×3 (01:46→08:20)
[2023-03-28] MEDS: SYMBICORT 80-4.5 MCG INHALER INHALATION SCH (08:19)
[2023-03-28] MEDS ORDERED: LORazepam 2 MG/ML INJ IV PRN (08:27)
[2023-03-28] MEDS ORDERED: AZITHROMYCIN 500 MG TAB PO SCH (09:00)
[2023-03-28] MEDS ORDERED: amLODIPine 10 MG TAB PO SCH (09:00)
[2023-03-28] MEDS ORDERED: POTASSIUM CHLORIDE ER 10 MEQ TAB.ER.PRT PO SCH (09:00)
[2023-03-28] MEDS ORDERED: MORPHINE SULFATE 2 MG/ML SYRINGE IV PRN (09:10)
[2023-03-28] MEDS: MORPHINE SULFATE (100 MG/2 ML) 100 MG in SODIUM CHLORIDE 0.9% 100 ML IV SCH (09:49)
[2023-03-28 11:14] VITALS: BMI 24.0
[2023-03-28 11:51] VITALS: BP 105/57; TEMP 97.1
--- NOTE | 2023-03-28 12:56 | P.PN ---
Subjective Progress Note Date: 03/28/23 Patient seen and evaluated bedside, family at bedside transition to comfort measures resting comfortably REVIEW OF SYSTEMS: Deferred patient comfort measures PHYSICAL EXAMINATION: GENERAL: Disoriented ill appearance Exam deferred patient is comfort measures hospice Objective - Vital Signs Vital signs: Vital Signs Temp 97.1 F L 03/28/23 08:00 Pulse 60 03/28/23 11:50 Resp 20 03/28/23 08:00 BP 105/57 03/28/23 08:00 Pulse Ox 97 03/28/23 08:00 FiO2 100 03/27/23 23:14 Intake & Output 03/27/23 03/28/23 03/28/23 18:59 06:59 18:59 Intake Total 540 2.839 Output Total 550 650 Balance -10 -650 2.839 Weight 63.503 kg 63.503 kg Intake: Intake, IV Titration 2.839 Amount Morphine Sulfate (100 mg/ 2.839 2 ml) 100 mg In Sodium Chloride 0.9% 100 ml @ 1 MG/HR 1.02 mls/hr IV . Q24H [facility] Rx#:[id number] Oral 540 Output: Urine 550 650 Other: Voiding Method Indwelling Catheter Indwelling Catheter Indwelling Catheter - Labs CBC & Chem 7: 03/27/23 01:35 03/27/23 01:35 Labs: Abnormal Lab Results - Last 24 Hours (Table) 03/27/23 03/27/23 03/27/23 Range/Units 04:20 12:06 17:21 APTT 44.5 H (22.0-30.0) sec POC Glucose (mg/dL) (70-110) mg/dL Troponin I 2.930 H* (0.000-0.034) ng/mL Procalcitonin 0.23 H ng/mL 03/27/23 Range/Units 19:36 APTT (22.0-30.0) sec POC Glucose (mg/dL) 138 H (70-110) mg/dL Troponin I (0.000-0.034) ng/mL Procalcitonin ng/mL Assessment and Plan Assessment: Assessment and plan * 83-year-old lady with past medical history significant for dementia, coronary artery disease, congestive heart failure, COPD admitted with shortness of breath, community-acquired pneumonia and non-ST elevated AR * Community-acquired pneumonia * Acute on chronic hypoxic respiratory failure * Non-ST elevated AR * History of dementia * Diabetes mellitus * Acute exacerbation of congestive heart failure diastolic dysfunction * Patient was receiving IV antibiotics and was on IV heparin however family deci ded to transition to comfort measures * Hospice consulted * Continue patient on morphine drip
--- NOTE | 2023-03-28 15:01 | P.PN ---
Subjective HISTORY OF PRESENTING ILLNESS This is a pleasantly confused 83-year-old female patient who typically follows with Dr. Dominguez. She is a history of CAD with prior stent in 2012, chronic diastolic congestive heart failure, COPD on home oxygen, lung cancer being followed closely by pulmonology with no treatment, aortic stenosis, PPM, HTN, HLD, DM and fairly advanced Alzheimer's dementia. She was camping with her daughter in [place] and woke up in the middle the night with sudden onset of significant shortness of breath and diaphoresis. No chest discomfort. The daughter gave her initially a Xanax without improvement in her symptoms. She was quite weak and had to get help to get her into the car. She brought her to the emergency department and was found to have an oxygen saturation of 62% on 3 L via nasal cannula. Chest x-ray did show possible atypical pneumonia. She admitting diagnosis of CHF exacerbation however NT proBNP is normal for age at 1520. Hemoglobin 9.6, creatinine 1.39 BUN 35. Initial troponin was normal at 0.016 with subsequent troponins of 2.04 and 2.93. 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 She is unsure of the degree of aortic stenosis. She verbalizes that she would like her mother to be a NO CODE. There have been previous conversations with the patient and her family regarding eventual hospice care. Over the last couple of months her appetite has declined and she has not been eating very much. She denies any edema or orthopnea. She's had no palpitations, dizziness or syncope. 03/28 Patient seen and examined. Patient enrolled in hospice and appears comfortable with morphine given. PHYSICAL EXAMINATION Vital signs reviewed. CONSTITUTIONAL: No apparent distress. HEENT: Head is normocephalic. Pupils are equal, round. Sclerae anicteric. Mucous membranes of the mouth are moist. No JVD. No carotid bruit. CHEST EXAMINATION: Lungs are clear to auscultation. No chest wall tenderness is noted on palpation or with deep breathing. HEART EXAMINATION: Regular rate and rhythm. S1, S2 heard. No murmurs, gallops or rub. ABDOMEN: Soft, nontender. Positive bowel sounds. EXTREMITIES: 2+ peripheral pulses, no lower extremity edema and no calf tenderness. NEUROLOGIC EXAMINATION: Patient is awake, alert and oriented x3. 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 Currently appears comfortable. Please call with any questions. Objective - Vital Signs Vital signs: Vital Signs Temp 97.1 F L 03/28/23 08:00 Pulse 60 03/28/23 11:50 Resp 20 03/28/23 08:00 BP 105/57 03/28/23 08:00 Pulse Ox 97 03/28/23 08:00 FiO2 100 03/27/23 23:14 Intake & Output 03/27/23 03/28/23 03/28/23 18:59 06:59 18:59 Intake Total 540 5.423 Output Total 550 650 Balance -10 -650 5.423 Weight 63.503 kg 63.503 kg Intake: Intake, IV Titration 5.423 Amount Morphine Sulfate (100 mg/ 5.423 2 ml) 100 mg In Sodium Chloride 0.9% 100 ml @ 1 MG/HR 1.02 mls/hr IV . Q24H [facility] Rx#:[id number] Oral 540 Output: Urine 550 650 Other: Voiding Method Indwelling Catheter Indwelling Catheter Indwelling Catheter - Labs CBC & Chem 7: 03/27/23 01:35 03/27/23 01:35 Labs: Abnormal Lab Results - Last 24 Hours (Table) 03/27/23 03/27/23 03/27/23 Range/Units 04:20 17:21 19:36 APTT 44.5 H (22.0-30.0) sec POC Glucose (mg/dL) 138 H (70-110) mg/dL Procalcitonin 0.23 H ng/mL Microbiology - Last 24 Hours (Table) 03/27/23 04:18 Blood Culture - Preliminary Blood
[2023-03-29] MEDS: MORPHINE SULFATE (100 MG/2 ML) 100 MG in SODIUM CHLORIDE 0.9% 100 ML IV SCH (02:13)
[2023-03-29 03:57] VITALS: PULSE 68; RESP 10
--- NOTE | 2023-03-29 14:17 | P.DS ---
Providers Date of admission: 03/27/23 04:19 Expected date of discharge: 03/29/23 Attending physician: Berry Arciniega Consults: 03/27/23 21:37 Consult Physician Stat Consulting Provider: Magali Diaz Consult Reason/Comments: increasing O2 demand Do you want consulting provider notified?: Already Contacted Primary care physician: [facility] Course: * 83-year-old female patient who typically follows with Dr. Dominguez. * She is a history of CAD with prior stent in 2011, chronic diastolic congestive heart failure, COPD on home oxygen, lung cancer being followed closely by pulmonology with no treatment, aortic stenosis, PPM, HTN, HLD, DM and fairly advanced Alzheimer's dementia. * She was camping with her daughter in [place] and woke up in the middle the [facility] with sudden onset of significant shortness of breath and diaphoresis. * The daughter gave her initially a Xanax without improvement in her symptoms. She was quite weak and had to get help to get her into the car. * She brought her to the emergency department and was found to have an oxygen saturation of 62% on 3 L via nasal cannula. Chest x-ray did show possible atypical pneumonia. She admitting diagnosis of CHF exacerbation however NT proBNP is normal for age at 1520. Hemoglobin 9.6, creatinine 1.39 BUN 35. Initial troponin was normal at 0.016 with subsequent troponins of 2.04 and 2.93. * According to the daughter she's been having worsening shortness of breath over the last 6-8 weeks and has been following closely with her primary care physician or manager nursing home and consulting marine engineer * Patient was noted to have elevated troponin, suspicion for pneumonia as well as associated with IV antibiotics and diuretic * Patient had respiratory distress and was eventually transitioned to comfort measures * IV heparin was discontinued and patient was started on morphine drip * Ultimately patient 03/29/23 0250 am Assessment: 83-year-old lady with past medical history significant for dementia, coronary artery disease, congestive heart failure, COPD admitted with shortness of breath, community-acquired pneumonia and non-ST elevated MO * Community-acquired pneumonia * Acute on chronic hypoxic respiratory failure * Non-ST elevated MO * History of dementia * Diabetes mellitus * Acute exacerbation of congestive heart failure diastolic dysfunction Patient was transitioned to comfort measures and ultimately Health Concerns: Patient Patient Condition at Discharge: Undetermined Plan - Discharge Summary Discharge Rx Participant: Yes New Discharge Prescriptions: No Action Donepezil [Aricept] 10 mg PO HS Montelukast [Singulair] 10 mg PO HS amLODIPine [Norvasc] 10 mg PO DAILY Potassium Chloride ER [K-Dur 10] 10 meq PO DAILY Lovastatin [Mevacor] 40 mg PO HS Furosemide [Lasix] 20 mg PO DAILY Levothyroxine Sodium [Synthroid] 125 mcg PO MOTUWETHFRSA lisinopriL [Zestril] 5 mg PO DAILY metFORMIN HCL ER [Glucophage XR] 500 mg PO W/BRKFST Mirtazapine [Remeron] 7.5 mg PO HS Memantine [Namenda] 10 mg PO BID Albuterol Nebulized [Ventolin Nebulized] 2.5 mg INHALATION RT-Q2H PRN PRN Reason: Shortness Of Breath Fluticasone Propion/Salmeterol [Wixela 250-50 Inhub] 1 puff INHALATION RT-BID Escitalopram [Lexapro] 10 mg PO DAILY Aspirin EC [Ecotrin Low Dose] 81 mg PO DAILY ALPRAZolam [Xanax] 0.25 mg PO DAILY PRN PRN Reason: Anxiety Discharge Medication List ALPRAZolam [Xanax] 0.25 mg PO DAILY PRN 03/27/23 [History] Albuterol Nebulized [Ventolin Nebulized] 2.5 mg INHALATION RT-Q2H PRN 03/27/23 [History] Aspirin EC [Ecotrin Low Dose] 81 mg PO DAILY 03/27/23 [History] Donepezil [Aricept] 10 mg PO HS 03/27/23 [History] Escitalopram [Lexapro] 10 mg PO DAILY 03/27/23 [History] Fluticasone Propion/Salmeterol [Wixela 250-50 Inhub] 1 puff INHALATION RT-BID 03/27/23 [History] Furosemide [Lasix] 20 mg PO DAILY 03/27/23 [History] Levothyroxine Sodium [Synthroid] 125 mcg PO MOTUWETHFRSA 03/27/23 [History] Lovastatin [Mevacor] 40 mg PO HS 03/27/23 [History] Memantine [Namenda] 10 mg PO BID 03/27/23 [History] Mirtazapine [Remeron] 7.5 mg PO HS 03/27/23 [History] Montelukast [Singulair] 10 mg PO HS 03/27/23 [History] Potassium Chloride ER [K-Dur 10] 10 meq PO DAILY 03/27/23 [History] amLODIPine [Norvasc] 10 mg PO DAILY 03/27/23 [History] lisinopriL [Zestril] 5 mg PO DAILY 03/27/23 [History] metFORMIN HCL ER [Glucophage XR] 500 mg PO W/BRKFST 03/27/23 [History] Discharge Disposition: - Preliminary Cause of Preliminary Cause of : Congestive heart failure
--- NOTE | 2023-04-08 12:44 | CDI ---
Documentation Clarification Form Date: 04/08/2023 From: Nga José Phone: [phone] Admit Date: 03/27/2023 04:19:00 AM Patient Name: Liz Reis Visit Number: [id number] Discharge Date: 03/29/2023 05:30:00 AM ATTENTION: The Clinical Documentation Specialists (CDI) and [facility] Coding Staff appreciate your assistance in clarifying documentation. Please respond to the clarification below the line at the bottom and electronically sign. The CDI & [facility] Coding staff will review the response and follow-up if needed. Please note: Queries are made part of the Legal Health Record. If you have any questions, please contact the author of this message via ITS. Dr. Lynsey Lyon Your patient has an abnormal lab value: BUN 35, Creat 1.39. Please clarify if there is an additional diagnosis and/or clinical significance related to this value. History/Risk Factors: 83yo presented with a NSTEMI, CHF and CAP. She has a h/o kidney agenesis, lung cancer, HTN and DM. Treatment: Pt transitioned to hospice care and Is there an additional diagnosis and/or clinical significance related to the above lab result/information? [ ] Acute renal failure [ ] No additional diagnosis/Not clinically significant [ ] Other, please specify [ ] Unable to determine (Template Last Revised: November 2020) MTDD
== END 2023-03-29 05:30 | disposition expired ==
LOC: EC 01:16 → 3SCARD 04:19
PROVIDERS: ADMIT Hospitalist; ATTEND Hospitalist
PROC: 5A09357 Assistance with Respiratory Ventilation, Less than 24 Consecutive Hours, Continuous Positive Airway Pressure (ICD-10-PCS; principal; 2023-03-27)
DX: I21.4 Non-ST elevation (NSTEMI) myocardial infarction (principal); I50.33 Acute on chronic diastolic (congestive) heart failure; J18.9 Pneumonia, unspecified organism; J96.21 Acute and chronic respiratory failure with hypoxia; Q60.2 Renal agenesis, unspecified; C34.90 Malignant neoplasm of unspecified part of unspecified bronchus or lung; J44.0 Chronic obstructive pulmonary disease with (acute) lower respiratory infection; F02.811 Dementia in other diseases classified elsewhere, unspecified severity, with agitation; I11.0 Hypertensive heart disease with heart failure; I35.0 Nonrheumatic aortic (valve) stenosis; Z51.5 Encounter for palliative care; Z66 Do not resuscitate; Z99.81 Dependence on supplemental oxygen; I25.10 Atherosclerotic heart disease of native coronary artery without angina pectoris; E07.9 Disorder of thyroid, unspecified; G30.9 Alzheimer's disease, unspecified; E78.5 Hyperlipidemia, unspecified; E11.9 Type 2 diabetes mellitus without complications; Z95.5 Presence of coronary angioplasty implant and graft; Z95.0 Presence of cardiac pacemaker; Z87.891 Personal history of nicotine dependence; Z85.3 Personal history of malignant neoplasm of breast; Z79.899 Other long term (current) drug therapy; Z79.890 Hormone replacement therapy; Z79.84 Long term (current) use of oral hypoglycemic drugs; Z79.82 Long term (current) use of aspirin; Z88.0 Allergy status to penicillin
CPT/HCPCS: 36415; 71045; 80053; 82803; 83605; 83735; 83880; 84145; 84484; 85025; 85610; 85730; 87040; 87449; 93005; 94640; 94660; 94760; 96365; 96367; 96375; 99285